=== PATIENT | male | born 1930 | race Caucasian/White ===

== ENCOUNTER 2021-02-01 14:43 | Inpatient (IN) | payer OTHER, MEDICARE ==
[~2021-02-01] VITALS: Ht 165.1 cm; Wt 76.2 kg
[2021-02-01] MEDS ORDERED: ONDANSETRON 4 MG/2 ML VIAL IV ONE (15:00)
[2021-02-01] MEDS ORDERED: MORPHINE SULFATE 2 MG/1 ML DISP.SYRIN IV ONE (15:00)
--- NOTE | 2021-02-01 15:00 | NUR ---
patient brought into the room with Dr Tate at bedside. brought in by personal ambulance and son at bedside for translation. patient is andorran speaking only. complaint is status post fall with hip pain. mobile xray done at home with probable fracture. will be admitted medsur bed.
[2021-02-01] MEDS ORDERED: ACET-73 PO (15:01)
[2021-02-01] MEDS ORDERED: CLON0.1T PO (15:01)
[2021-02-01] MEDS ORDERED: ASPI81TA31 PO (15:01)
[2021-02-01] MEDS ORDERED: LORA2TAB95 PO (15:01)
[2021-02-01] MEDS ORDERED: FURO-151 PO (15:01)
[2021-02-01] MEDS ORDERED: AMLO10TA59 PO (15:01)
[2021-02-01] MEDS ORDERED: LEVO50TA66 PO (15:01)
[2021-02-01] MEDS ORDERED: ZOLP5TAB8 PO (15:01)
[2021-02-01] MEDS ORDERED: GABA600T12 PO (15:01)
[2021-02-01 15:10] LABS: BASOPHILS % (AUTO) 0.4 % (0.0-2.0); EOSINOPHILS % (AUTO) 0.2 % (0.0-7.0); HEMATOCRIT 32.7 % (36.7-47.1); HEMOGLOBIN 10.8 g/dL (12.5-16.3); LYMPHOCYTES # (AUTO) 2.4 K/uL (20.0-40.0); LYMPHOCYTES % (AUTO) 20.6 % (20.5-51.5); MEAN CORPUSCULAR HEMOGLOBIN 27.7 uug (23.8-33.4); MEAN CORPUSCULAR HGB CONC 33 g/dL (32.5-36.3); MEAN CORPUSCULAR VOLUME 84.1 fL (73.0-96.2); MONOCYTES # (AUTO) 0.9 K/uL (2.0-10.0); MONOCYTES % (AUTO) 7.6 % (0.0-11.0); NEUTROPHILS # (AUTO) 8.4 K/uL (1.8-8.9); NEUTROPHILS % (AUTO) 71.2 % (38.5-71.5); PLATELET COUNT (AUTO) 245 K/uL (152-348); RED BLOOD CELL COUNT(AUTO) 3.89 MIL/uL (4.06-5.63); WHITE BLOOD COUNT (AUTO) 11.9 K/uL (3.6-10.2)
[2021-02-01] MEDS ORDERED: MORPHINE SULFATE 2 MG/1 ML DISP.SYRIN ONE (15:12)
[2021-02-01] MEDS ORDERED: ONDANSETRON 4 MG/2 ML VIAL ONE (15:12)
--- NOTE | 2021-02-01 15:13 | NUR ---
xray taken at this time and pain medication given prior to xray
[2021-02-01 15:16] LABS: CARBON DIOXIDE 25 mmol/L (21-32); CHLORIDE 106 mmol/L (98-107); CREATININE 1.6 mg/dL (0.6-1.3); GLUCOSE 120 mg/dL (74-106); POTASSIUM 4.8 mmol/L (3.5-5.1); UREA NITROGEN, BLOOD 21 mg/dL (7-18)
[2021-02-01 15:24] LABS: ALANINE AMINOTRANSFERASE 12 U/L (16-63); ALKALINE PHOSPHATASE 90 U/L (50-136); ASPARTATE AMINOTRANSFERASE 12 U/L (15-37); BILIRUBIN,DIRECT 0.1 mg/dL (0.0-0.2); BILIRUBIN,TOTAL 0.3 mg/dL (0.2-1.0); TOTAL PROTEIN, SERUM 6.8 g/dL (6.4-8.2)
--- NOTE | 2021-02-01 15:29 | NUR ---
left message with Dr. Pugh at this time
--- NOTE | 2021-02-01 15:30 | NUR ---
left message with Epic for pending admission
--- NOTE | 2021-02-01 15:34 | NUR ---
dr. cazares called back and spoke to dr. hathaway for consultation. And Ashu pending call back for admission. waiting for call back from [facility] for bed assignment.
--- NOTE | 2021-02-01 15:37 | NUR ---
called back with covid rapid is negative
[2021-02-01] MEDS ORDERED: IV NORMAL SALINE 500 ML IV ONE (16:15)
--- NOTE | 2021-02-01 16:19 | NUR ---
second call waiting for call back for assigned bed and nurse for medsurg admission
--- NOTE | 2021-02-01 16:21 | NUR ---
patient will be going to room 304. admitting nurse is Gwendolyn will call back for report.
[2021-02-01] MEDS ORDERED: MORPHINE SULFATE 2 MG/1 ML DISP.SYRIN IV PRN (16:30)
[2021-02-01] MEDS ORDERED: ONDANSETRON 4 MG/2 ML VIAL IV PRN ×2 (16:30→16:45)
[2021-02-01] MEDS ORDERED: Z GUARD REMEDY PASTE 57 GM TUBE TOP PRN (16:30)
--- NOTE | 2021-02-01 16:33 | NUR ---
Gilda RN receiving report at this time.
--- NOTE | 2021-02-01 16:35 | NUR ---
Received patient report from Vicki BEE in ER at this time.
[2021-02-01 17:08] VITALS: BP 103/52
--- NOTE | 2021-02-01 17:15 | NUR ---
received patient from ER via gurney, patient awake and alert, no pain or discomfort noted at this time. IV intact and patent. patient on room air with no signs of SOB noted at this time. son at bedside. call light within reach. will continue to monitor.
--- NOTE | 2021-02-01 18:47 | NUR ---
patient in room awake and alert, on room air saturation at 94%. vitals stable. no complains of any pain or discomfort at this time. IV intact and patent NS running at 100ml/hr. as ordered. call light kept within reach. son at bedside. will report to oncoming shift.
--- NOTE | 2021-02-01 19:00 | NUR ---
Received patient lying in bed. Nephew at bedside. AAOx4, Nepali speaking only. Denies any pain or SOB at this time. IV site on left hand intact and patent. IVF infusing. Needs assessed and attended to. Safety measure initiated and call waldrop within reached.
[2021-02-01 20:00] VITALS: BP 119/49
--- NOTE | 2021-02-01 20:15 | NUR ---
Patient dee dee Daley at bedside and discussed patient medication from home (eye drops) and other medications. TRES [place] made aware of patient medication from home and order to go ahead and start patient medication latanoprost, Xalatan, timolol, gabapentin and Ativan. All medication verified and will carry out.
[2021-02-01] MEDS: GABAPENTIN 300 MG CAPSULE PO SCH (20:44)
[2021-02-01] MEDS: LORAZEPAM 1 MG TABLET PO SCH (20:44)
[2021-02-01] MEDS ORDERED: LATANOPROST OPHT DROP 2.5 ML BOTTLE EACHEYE SCH (21:00)
[2021-02-01] MEDS: IV NS 1000 ML 1,000 ML IV PRN (22:24)
[2021-02-02 04:05] VITALS: BP 112/53
--- NOTE | 2021-02-02 06:13 | NUR ---
Slept well last night. Denies any pain or SOB. NPO status. IV site on left hand remains intact and patent. IVF infusing. Needs attended to and met. Safety measure maintained and call waldrop within reached.
[2021-02-02 06:53] LABS: BASOPHILS % (AUTO) 0.4 % (0.0-2.0); EOSINOPHILS # (AUTO) 0.1 K/uL (0.0-0.7); EOSINOPHILS % (AUTO) 1.5 % (0.0-7.0); HEMATOCRIT 29.4 % (36.7-47.1); HEMOGLOBIN 9.6 g/dL (12.5-16.3); LYMPHOCYTES # (AUTO) 2.9 K/uL (20.0-40.0); LYMPHOCYTES % (AUTO) 30.3 % (20.5-51.5); MEAN CORPUSCULAR HEMOGLOBIN 27.9 uug (23.8-33.4); MEAN CORPUSCULAR HGB CONC 33 g/dL (32.5-36.3); MEAN CORPUSCULAR VOLUME 85.3 fL (73.0-96.2); MONOCYTES # (AUTO) 0.9 K/uL (2.0-10.0); MONOCYTES % (AUTO) 9.3 % (0.0-11.0); NEUTROPHILS # (AUTO) 5.5 K/uL (1.8-8.9); NEUTROPHILS % (AUTO) 58.5 % (38.5-71.5); PLATELET COUNT (AUTO) 217 K/uL (152-348); RED BLOOD CELL COUNT(AUTO) 3.45 MIL/uL (4.06-5.63); WHITE BLOOD COUNT (AUTO) 9.5 K/uL (3.6-10.2)
[2021-02-02 07:11] LABS: BILIRUBIN,TOTAL 0.4 mg/dL (0.2-1.0); CREATININE 1.1 mg/dL (0.6-1.3); MAGNESIUM 2.4 mg/dL (1.8-2.4); PHOSPHOROUS 4.6 mg/dL (2.5-4.9); POTASSIUM 4.4 mmol/L (3.5-5.1); TOTAL PROTEIN, SERUM 6.3 g/dL (6.4-8.2)
--- NOTE | 2021-02-02 07:15 | NUR ---
report received, patient awake in bed, no complains of any pain or discomfort noted at this time. call light kept within reach will continue to monitor.
[2021-02-02] MEDS: PANTOPRAZOLE SODIUM 40 MG VIAL IV SCH (08:51)
[2021-02-02] MEDS: GABAPENTIN 300 MG CAPSULE PO SCH ×2 (08:52→17:03)
[2021-02-02] MEDS: BRIMONIDINE 0.2% OPHT DROP 10 ML BOTTLE EACHEYE SCH ×2 (08:52→20:11)
[2021-02-02] MEDS: TIMOLOL MALEATE 0.5% OPHT DROP 5 ML BOTTLE EACHEYE SCH ×2 (08:52→20:11)
[2021-02-02 11:48] VITALS: BP 110/55
[2021-02-02 15:50] VITALS: BP 104/55
[2021-02-02 16:22] LABS: *BILIRUBIN,URIN NEGATIVE (NEGATIVE); *CLARITY,URINE CLEAR (CLEAR); *COLOR,URINE YELLOW (YELLOW); *KETONES,URINE NEGATIVE (NEGATIVE); *UROBILINOGEN,URINE 0.2 E.U./dl (NORMAL); LEUKOCYTE ESTERASE ,URINE NEGATIVE (NEGATIVE); NITRITE, URINE NEGATIVE (NEGATIVE); PH,URINE 5.5 (5.0-8.0); UGLUCOSE NEGATIVE (NEGATIVE)
[2021-02-02 16:24] LABS: *BLOOD, URINE TRACE (NEGATIVE)
[2021-02-02 16:37] LABS: BACTERIA,URINE NONE SEEN /HPF (NONE SEEN); RBC,URINE 0-3 /HPF (0-3); SQUAMOUS EPITHELIAL CELL,UR NONE SEEN /HPF (NONE SEEN); WBC,URINE 0-3 /HPF (0-3)
--- NOTE | 2021-02-02 17:49 | NUR ---
pt son at bedside, Arturo, stated that "his dad was under general anesthesia two months ago for a procedure done to remove food that was stuck in his lower esophagus, also the pt had a cxr done two months ago and showed a small amount of fluid in the lungs." Pt son wants to pass this information along as part of surgical report for the surgeon/anesthesiologist/scrub RN.
--- NOTE | 2021-02-02 18:28 | NUR ---
patient in bed awake, IV on left hand patent and flushed. no complains of any pain or discomfort. safety precautions in place. call light kept within reach. son at bedside. will report to oncoming nurse.
--- NOTE | 2021-02-02 19:30 | NUR ---
AAOx4. Family at bedside. Denies any pain or SOB. O2 sat at 88% on RA. O2 at 2LPM via NC provided. O2 sat went up to 91%. IV site on left hand intact and patent. IVF infusing. Cooling measure provided for temp 100.4 orally. Needs assessed and attended to. Safety measure initiated and call waldrop within reached.
[2021-02-02 20:00] VITALS: BP 131/61
[2021-02-02] MEDS: ACETAMINOPHEN 325 MG TABLET PO PRN (20:11)
[2021-02-02] MEDS: LORAZEPAM 1 MG TABLET PO SCH (20:13)
[2021-02-02] MEDS: LATANOPROST OPHT DROP 2.5 ML BOTTLE EACHEYE SCH (20:56)
--- NOTE | 2021-02-02 21:24 | NUR ---
Informed Dr. Pugh that patient had a temp of 100.4 orally at the beginning of shift, Cooling measure provided as well as Tylenol 650mg. Latest Temp is still 100.0 orally. No new order given. will continue with cooling measure and continue to monitor.
[2021-02-03] VITALS (9 sets, daily range): BP systolic 102–131; BP diastolic 39–62
[2021-02-03] MEDS: IV NS 1000 ML 1,000 ML IV PRN (00:10)
[2021-02-03 05:40] LABS: BASOPHILS # (AUTO) 0.1 K/uL (0.0-8.0); BASOPHILS % (AUTO) 0.6 % (0.0-2.0); EOSINOPHILS # (AUTO) 0.1 K/uL (0.0-0.7); EOSINOPHILS % (AUTO) 1.5 % (0.0-7.0); HEMOGLOBIN 9.3 g/dL (12.5-16.3); LYMPHOCYTES # (AUTO) 2.6 K/uL (20.0-40.0); LYMPHOCYTES % (AUTO) 26.1 % (20.5-51.5); MEAN CORPUSCULAR HEMOGLOBIN 28.1 uug (23.8-33.4); MEAN CORPUSCULAR HGB CONC 33 g/dL (32.5-36.3); MEAN CORPUSCULAR VOLUME 84.1 fL (73.0-96.2); MONOCYTES % (AUTO) 10.3 % (0.0-11.0); NEUTROPHILS # (AUTO) 6.1 K/uL (1.8-8.9); NEUTROPHILS % (AUTO) 61.5 % (38.5-71.5); PLATELET COUNT (AUTO) 185 K/uL (152-348); RED BLOOD CELL COUNT(AUTO) 3.32 MIL/uL (4.06-5.63)
[2021-02-03 05:49] LABS: MAGNESIUM 2.2 mg/dL (1.8-2.4); POTASSIUM 4.1 mmol/L (3.5-5.1)
--- NOTE | 2021-02-03 06:20 | NUR ---
Patient slept well last night. O2 sat at 93% on RA. Afebrile. NPO status. Awaiting for surgery. IVF infusing. Needs attended to and met. Safety measure maintained.
--- NOTE | 2021-02-03 07:00 | NUR ---
Patient picked up by surgical team via hospital bed.
[2021-02-03] MEDS ORDERED: MIDAZOLAM HCL 2 MG/2 ML VIAL ONE (07:01)
[2021-02-03] MEDS ORDERED: FENTANYL CITRATE 250 MCG/5 ML AMPUL ONE (07:01)
[2021-02-03] MEDS ORDERED: POLYMYXIN B SULFATE 500,000 UNITS, BACITRACIN 50,000 UNITS, NORMAL SALINE 20 ML MC ONE (07:15)
[2021-02-03] MEDS ORDERED: VANCOMYCIN 1000 MG VIAL ONE (07:20)
[2021-02-03] MEDS ORDERED: BUPIVACAINE 0.25% 30 ML VIAL ONE (08:40)
[2021-02-03] MEDS ORDERED: CEFAZOLIN 1 G VIAL IM ONE (09:11)
[2021-02-03] MEDS ORDERED: SEVOFLURANE 250 ML BOTTLE IH ONE (09:11)
[2021-02-03] MEDS ORDERED: METOCLOPRAMIDE HCL 10 MG/2 ML VIAL IV ONE (09:11)
[2021-02-03] MEDS ORDERED: LIDOCAINE-MPF 2% 5 ML VIAL IJ ONE (09:11)
[2021-02-03] MEDS ORDERED: ONDANSETRON 4 MG/2 ML VIAL IV ONE (09:11)
[2021-02-03] MEDS ORDERED: PROPOFOL 200 MG/20 ML BOTTLE IV ONE (09:11)
--- NOTE | 2021-02-03 09:52 | NUR ---
WOUND CARE CONSULT: PT OFF UNIT AT THIS TIME IN O.R. RECOMMENDATIONS MADE FOR SKIN PROTECTION. DISCUSSED WITH NURSING STAFF. WILL SEE PT PT CONDITION PERMITS.
--- NOTE | 2021-02-03 10:33 | NUR ---
pt received from recovery room via bed in stable condition vs are stable call light with in reach son is at bed side
[2021-02-03] MEDS: TIMOLOL MALEATE 0.5% OPHT DROP 5 ML BOTTLE EACHEYE SCH ×2 (10:40→21:22)
[2021-02-03] MEDS: GABAPENTIN 300 MG CAPSULE PO SCH ×2 (10:40→16:13)
[2021-02-03] MEDS: BRIMONIDINE 0.2% OPHT DROP 10 ML BOTTLE EACHEYE SCH ×2 (10:40→21:22)
[2021-02-03] MEDS: PANTOPRAZOLE SODIUM 40 MG VIAL IV SCH (10:42)
[2021-02-03] MEDS ORDERED: IV D5 1/2 NS 1000 ML 1,000 ML IV PRN (11:30)
[2021-02-03] MEDS ORDERED: MORPHINE SULFATE 4 MG/1 ML DISP.SYRIN IV PRN ×2 (12:15→14:15)
[2021-02-03] MEDS: IV D5W-0.45% NS +20 KCL 1,000 ML IV PRN (13:47)
[2021-02-03] MEDS: HYDROCODONE/APAP 5-325MG TABLET PO PRN (13:50)
[2021-02-03] MEDS: CEFAZOLIN 1 G in IV DEXTROSE 5% 50 ML IV SCH ×2 (15:07→23:14)
--- NOTE | 2021-02-03 21:00 | NUR ---
Received pt in bed, with family at bedside. Pt is awake and verbally responsive, [place] speaking. Pt denies any pain or discomfort. On oxygen at 2LPM, non labored breathing, saturating at 96%. IVF infusing well. With SCD's on. Safety measures initiated, call light within reach, will continue to monitor.
[2021-02-03] MEDS: LATANOPROST OPHT DROP 2.5 ML BOTTLE EACHEYE SCH (21:21)
[2021-02-03] MEDS: LORAZEPAM 1 MG TABLET PO SCH (21:22)
[2021-02-03] MEDS: ACETAMINOPHEN 325 MG TABLET PO PRN (21:22)
[2021-02-03] MEDS: MAGNESIUM HYDROXIDE 30 ML LIQUID UDC PO PRN (21:22)
[2021-02-04] MEDS: HYDROCODONE/APAP 5-325MG TABLET PO PRN ×3 (01:30→20:39)
[2021-02-04 04:00] VITALS: BP 119/56
[2021-02-04] MEDS: IV D5W-0.45% NS +20 KCL 1,000 ML IV PRN ×2 (05:34→18:34)
[2021-02-04 05:48] LABS: BASOPHILS # (AUTO) 0.1 K/uL (0.0-8.0); BASOPHILS % (AUTO) 0.4 % (0.0-2.0); EOSINOPHILS # (AUTO) 0.1 K/uL (0.0-0.7); HEMATOCRIT 24.8 % (36.7-47.1); HEMOGLOBIN 8.2 g/dL (12.5-16.3); LYMPHOCYTES # (AUTO) 3.2 K/uL (20.0-40.0); MEAN CORPUSCULAR HEMOGLOBIN 28.1 uug (23.8-33.4); MEAN CORPUSCULAR HGB CONC 33 g/dL (32.5-36.3); MEAN CORPUSCULAR VOLUME 84.7 fL (73.0-96.2); MONOCYTES # (AUTO) 1.3 K/uL (2.0-10.0); MONOCYTES % (AUTO) 10.5 % (0.0-11.0); NEUTROPHILS # (AUTO) 7.7 K/uL (1.8-8.9); NEUTROPHILS % (AUTO) 62.1 % (38.5-71.5); PLATELET COUNT (AUTO) 196 K/uL (152-348); RED BLOOD CELL COUNT(AUTO) 2.93 MIL/uL (4.06-5.63); WHITE BLOOD COUNT (AUTO) 12.3 K/uL (3.6-10.2)
[2021-02-04 06:08] LABS: BILIRUBIN,TOTAL 0.4 mg/dL (0.2-1.0); CREATININE 1.1 mg/dL (0.6-1.3); MAGNESIUM 2.4 mg/dL (1.8-2.4); PHOSPHOROUS 3.4 mg/dL (2.5-4.9); POTASSIUM 4.5 mmol/L (3.5-5.1); TOTAL PROTEIN, SERUM 6.2 g/dL (6.4-8.2)
--- NOTE | 2021-02-04 06:34 | NUR ---
Slept intermittently through the night. tolerated medications well. IVF infusing on R forearm. Ice pack applied on affected side. Bed locked and in low position. side rails up. call light within reach. all needs attended and met.
[2021-02-04] MEDS: PANTOPRAZOLE SODIUM 40 MG TABLET.DR PO SCH (07:39)
[2021-02-04] MEDS: GABAPENTIN 300 MG CAPSULE PO SCH ×2 (08:02→16:01)
[2021-02-04] MEDS: BRIMONIDINE 0.2% OPHT DROP 10 ML BOTTLE EACHEYE SCH ×2 (08:02→20:37)
[2021-02-04] MEDS: TIMOLOL MALEATE 0.5% OPHT DROP 5 ML BOTTLE EACHEYE SCH ×2 (08:02→20:37)
[2021-02-04 11:27] VITALS: BP 114/52
[2021-02-04] MEDS: MAGNESIUM HYDROXIDE 30 ML LIQUID UDC PO PRN (12:44)
[2021-02-04 15:28] VITALS: BP 129/50
[2021-02-04] MEDS: ACETAMINOPHEN 325 MG TABLET PO PRN (17:11)
--- NOTE | 2021-02-04 19:30 | NUR ---
Received pt in bed, awake and verbally responsive. Pt denies any pain or discomfort. Non labored breathing, with oxygen at 2LPM via NC. intermittent pneumatic compression device on. IVF infusing well. Safety measures initiated, call light within reach, will continue to monitor.
[2021-02-04 20:00] VITALS: BP 103/53
[2021-02-04] MEDS: LATANOPROST OPHT DROP 2.5 ML BOTTLE EACHEYE SCH (20:37)
[2021-02-04] MEDS: LORAZEPAM 1 MG TABLET PO SCH (21:26)
[2021-02-05] VITALS (9 sets, daily range): BP systolic 98–127; BP diastolic 40–61
[2021-02-05 06:05] LABS: BASOPHILS # (AUTO) 0.1 K/uL (0.0-8.0); BASOPHILS % (AUTO) 0.6 % (0.0-2.0); EOSINOPHILS # (AUTO) 0.3 K/uL (0.0-0.7); EOSINOPHILS % (AUTO) 2.7 % (0.0-7.0); HEMATOCRIT 21.9 % (36.7-47.1); LYMPHOCYTES # (AUTO) 2.5 K/uL (20.0-40.0); MEAN CORPUSCULAR HEMOGLOBIN 28.2 uug (23.8-33.4); MEAN CORPUSCULAR HGB CONC 34 g/dL (32.5-36.3); MEAN CORPUSCULAR VOLUME 83.9 fL (73.0-96.2); MONOCYTES # (AUTO) 1.1 K/uL (2.0-10.0); MONOCYTES % (AUTO) 9.8 % (0.0-11.0); NEUTROPHILS # (AUTO) 7.4 K/uL (1.8-8.9); NEUTROPHILS % (AUTO) 64.9 % (38.5-71.5); PLATELET COUNT (AUTO) 196 K/uL (152-348); RED BLOOD CELL COUNT(AUTO) 2.61 MIL/uL (4.06-5.63); WHITE BLOOD COUNT (AUTO) 11.4 K/uL (3.6-10.2)
[2021-02-05] MEDS: PANTOPRAZOLE SODIUM 40 MG TABLET.DR PO SCH (06:07)
[2021-02-05 06:15] LABS: HEMOGLOBIN 7.4 g/dL (12.5-16.3)
[2021-02-05 06:25] LABS: CREATININE 1.1 mg/dL (0.6-1.3); MAGNESIUM 2.5 mg/dL (1.8-2.4)
--- NOTE | 2021-02-05 06:34 | NUR ---
Pain medication administered as ordered. Pt tolerated medications well. No signs of distress. Used incentive spirometer every hour when awake. Slept well. Dressing on L hip has moderate sanguineous drainage. Notified Dr. Pugh on pt's latest Hgb and drainage status. Will endorse to incoming nurse.
[2021-02-05] MEDS: IV D5W-0.45% NS +20 KCL 1,000 ML IV PRN (07:16)
--- NOTE | 2021-02-05 07:30 | NUR ---
Received patient in bed alert and oriented times 4. No sign of distress noted. Patient is mostly Congolese speaking. Family is at bedside. Surgical site intact, some drainage noted. Patient is on 2L NC. Safety precautions are in place. Will continue to monitor.
[2021-02-05] MEDS: ENSURE ENLIVE (VAN) 240 ML LIQUID PO SCH (08:47)
[2021-02-05] MEDS: GABAPENTIN 300 MG CAPSULE PO SCH ×2 (08:47→17:39)
[2021-02-05] MEDS: TIMOLOL MALEATE 0.5% OPHT DROP 5 ML BOTTLE EACHEYE SCH ×2 (08:48→20:46)
[2021-02-05] MEDS: BRIMONIDINE 0.2% OPHT DROP 10 ML BOTTLE EACHEYE SCH ×2 (08:49→20:46)
--- NOTE | 2021-02-05 10:00 | NUR ---
Call Dr Pugh's office to let him know of surgical drainage. Left message and awaiting callback. Will continue to monitor.
[2021-02-05] MEDS: ACETAMINOPHEN 325 MG TABLET PO PRN ×2 (15:13→23:46)
--- NOTE | 2021-02-05 16:30 | NUR ---
DRESSING CHANGED LEFT HIP. INCISIONS X3 CLEAN & DRY. NO REDNESS NOTED. BHARGAVI INTACT. SMALL AMOUNT OF SEROUS DRAINAGE NOTED ON TOP INCISION.
--- NOTE | 2021-02-05 18:47 | NUR ---
Patient is left resting in bed no sign of distress noted. Gave medication as ordered. Patient temp recheck was now 99.8. Blood consent signed and in chart Safety precautions are in place. Will endorse to the oncoming shift.
--- NOTE | 2021-02-05 19:30 | NUR ---
Received pt in bed, awake and verbally responsive, denies any pain or discomfort. On oxygen at 2LPM via NC. No signs of acute distress. IV access on R forearm intact and patent. Dressing on L hip intact, no signs of drainage. Bed locked and in low position. side rails up. Call light within reach. Will continue to monitor.
[2021-02-05] MEDS: LATANOPROST OPHT DROP 2.5 ML BOTTLE EACHEYE SCH (20:46)
[2021-02-05] MEDS: LORAZEPAM 1 MG TABLET PO SCH (21:00)
--- NOTE | 2021-02-05 22:28 | NUR ---
Blood transfusion consent signed by pt's son. IV access intact and patent. VS taken prior to blood transfusion. Verification checklist done with Anny BEE. Blood transfusion started. Will monitor pt closely for any blood transfusion reactions. .
[2021-02-06 00:17] VITALS: BP 117/55
--- NOTE | 2021-02-06 01:40 | NUR ---
1 PRBC infused and tolerated well. No s/s of blood transfusion reactions. Pt denies any SOB, chest pain, lightheadedness, dizziness or discomfort. Repositioned pt comfortably in bed. will continue to monitor.
[2021-02-06 04:00] VITALS: BP 125/56
[2021-02-06] MEDS: PANTOPRAZOLE SODIUM 40 MG TABLET.DR PO SCH (06:16)
--- NOTE | 2021-02-06 06:26 | NUR ---
Pt in bed, asleep but easily arousable, tolerated medications well. Denies any pain or discomfort. No s/s of acute distress. IV access intact and patent. No reaction from blood transfusion noted. L hip incision with barbara, no signs of drainage. Surrounding area is tender. Wound dressing done. Intermittent compression device on. Will endorse to incoming nurse.
[2021-02-06 06:38] LABS: BASOPHILS # (AUTO) 0.1 K/uL (0.0-8.0); BASOPHILS % (AUTO) 0.6 % (0.0-2.0); EOSINOPHILS # (AUTO) 0.4 K/uL (0.0-0.7); EOSINOPHILS % (AUTO) 3.2 % (0.0-7.0); HEMATOCRIT 26.3 % (36.7-47.1); HEMOGLOBIN 8.8 g/dL (12.5-16.3); LYMPHOCYTES # (AUTO) 2.8 K/uL (20.0-40.0); LYMPHOCYTES % (AUTO) 23.9 % (20.5-51.5); MEAN CORPUSCULAR HEMOGLOBIN 28.7 uug (23.8-33.4); MEAN CORPUSCULAR HGB CONC 34 g/dL (32.5-36.3); MEAN CORPUSCULAR VOLUME 85.6 fL (73.0-96.2); MONOCYTES # (AUTO) 1.1 K/uL (2.0-10.0); MONOCYTES % (AUTO) 9.4 % (0.0-11.0); NEUTROPHILS # (AUTO) 7.4 K/uL (1.8-8.9); NEUTROPHILS % (AUTO) 62.9 % (38.5-71.5); PLATELET COUNT (AUTO) 221 K/uL (152-348); RED BLOOD CELL COUNT(AUTO) 3.08 MIL/uL (4.06-5.63); WHITE BLOOD COUNT (AUTO) 11.7 K/uL (3.6-10.2)
[2021-02-06 06:48] LABS: POTASSIUM 4.5 mmol/L (3.5-5.1)
--- NOTE | 2021-02-06 06:55 | NUR ---
Endorsed to AM nurse to refer incision site tenderness to Dr. Pugh today.
[2021-02-06] MEDS: TIMOLOL MALEATE 0.5% OPHT DROP 5 ML BOTTLE EACHEYE SCH ×2 (08:01→20:36)
[2021-02-06] MEDS: GABAPENTIN 300 MG CAPSULE PO SCH ×2 (08:01→16:04)
[2021-02-06] MEDS: BRIMONIDINE 0.2% OPHT DROP 10 ML BOTTLE EACHEYE SCH ×2 (08:01→20:32)
[2021-02-06] MEDS: ENSURE ENLIVE (VAN) 240 ML LIQUID PO SCH (08:02)
[2021-02-06] MEDS ORDERED: MORPHINE SULFATE 2 MG/1 ML DISP.SYRIN IV PRN (11:30)
[2021-02-06 11:43] VITALS: BP 118/54
[2021-02-06 14:26] VITALS: BP 124/59
--- NOTE | 2021-02-06 19:30 | NUR ---
RECEIVED PT AWAKE, ALERT AND ORIENTEDX4. FAMILY AT BEDSIDE. PT IN NO ACUTE DISTRESS. IV INTACT. PT COMPLAINING OF PAIN. SAFETY AND COMFORT PROVIDED. WILL CONTINUE TO MONITOR.
[2021-02-06] MEDS: HYDROCODONE/APAP 5-325MG TABLET PO PRN (19:47)
[2021-02-06 20:00] VITALS: BP 138/64
--- NOTE | 2021-02-06 20:30 | NUR ---
AT 1947H PT WAS GIVEN NORCO PRN FOR 5/7 PAIN . PT TOLERATED IT WELL. AFTER 30 MINUTES PT STATED HIS PAIN GOT BETTER. SAFETY PROVIDED. WILL CONTINUE TO MONITOR.
[2021-02-06] MEDS: LATANOPROST OPHT DROP 2.5 ML BOTTLE EACHEYE SCH (20:47)
[2021-02-06] MEDS: LORAZEPAM 1 MG TABLET PO SCH (21:19)
[2021-02-07] MEDS: ACETAMINOPHEN 325 MG TABLET PO PRN (03:58)
[2021-02-07 04:00] VITALS: BP 135/63
[2021-02-07] MEDS: PANTOPRAZOLE SODIUM 40 MG TABLET.DR PO SCH (06:09)
--- NOTE | 2021-02-07 06:16 | NUR ---
PT SLEPT INTERMITTENTLY. PT IN NO ACUTE DISTRESS. PRESCRIBED MEDICATION GIVEN AND PT TOLERATED IT WELL. TYLENOL 650MG PRN GIVEN AT 0358H FOR PAIN. PT TOLERATED IT WELL. SAFETY AND COMFORT PROVIDED. ALL NEEDS ARE MET. VITAL SIGNS WITHIN NORMAL LIMIT. WILL ENDORSE TO INCOMING NURSE FOR CONTINUITY OF CARE.
[2021-02-07 06:24] LABS: BASOPHILS # (AUTO) 0.1 K/uL (0.0-8.0); BASOPHILS % (AUTO) 0.5 % (0.0-2.0); EOSINOPHILS # (AUTO) 0.3 K/uL (0.0-0.7); EOSINOPHILS % (AUTO) 2.2 % (0.0-7.0); HEMATOCRIT 28.5 % (36.7-47.1); HEMOGLOBIN 9.4 g/dL (12.5-16.3); LYMPHOCYTES % (AUTO) 24.7 % (20.5-51.5); MEAN CORPUSCULAR HEMOGLOBIN 28.5 uug (23.8-33.4); MEAN CORPUSCULAR HGB CONC 33 g/dL (32.5-36.3); MEAN CORPUSCULAR VOLUME 86.6 fL (73.0-96.2); MONOCYTES # (AUTO) 1.1 K/uL (2.0-10.0); MONOCYTES % (AUTO) 8.8 % (0.0-11.0); NEUTROPHILS # (AUTO) 7.8 K/uL (1.8-8.9); NEUTROPHILS % (AUTO) 63.8 % (38.5-71.5); PLATELET COUNT (AUTO) 281 K/uL (152-348); RED BLOOD CELL COUNT(AUTO) 3.29 MIL/uL (4.06-5.63); WHITE BLOOD COUNT (AUTO) 12.2 K/uL (3.6-10.2)
[2021-02-07 06:54] LABS: BILIRUBIN,TOTAL 0.8 mg/dL (0.2-1.0); MAGNESIUM 2.4 mg/dL (1.8-2.4); PHOSPHOROUS 4.2 mg/dL (2.5-4.9); POTASSIUM 4.7 mmol/L (3.5-5.1); TOTAL PROTEIN, SERUM 6.4 g/dL (6.4-8.2)
[2021-02-07] MEDS: GABAPENTIN 300 MG CAPSULE PO SCH ×2 (09:04→17:45)
[2021-02-07] MEDS: TIMOLOL MALEATE 0.5% OPHT DROP 5 ML BOTTLE EACHEYE SCH ×2 (09:05→20:49)
[2021-02-07] MEDS: ENSURE ENLIVE (VAN) 240 ML LIQUID PO SCH (09:05)
[2021-02-07] MEDS: BRIMONIDINE 0.2% OPHT DROP 10 ML BOTTLE EACHEYE SCH ×2 (09:05→20:49)
[2021-02-07 11:47] VITALS: BP 111/57
[2021-02-07 16:00] VITALS: BP 118/62
--- NOTE | 2021-02-07 18:50 | NUR ---
Patient is left resting in bed no sign of distress noted. Gave medication as ordered. Family at bedside. Safety precautions are in place. Will endorse to the oncoming shift.
[2021-02-07 20:37] VITALS: BP 103/55
[2021-02-07] MEDS: LORAZEPAM 1 MG TABLET PO SCH (20:48)
[2021-02-07] MEDS: LATANOPROST OPHT DROP 2.5 ML BOTTLE EACHEYE SCH (20:49)
[2021-02-07] MEDS: HYDROCODONE/APAP 5-325MG TABLET PO PRN (20:51)
[2021-02-08 05:26] VITALS: BP 125/67
[2021-02-08] MEDS: PANTOPRAZOLE SODIUM 40 MG TABLET.DR PO SCH (06:06)
[2021-02-08] MEDS: HYDROCODONE/APAP 5-325MG TABLET PO PRN (06:13)
--- NOTE | 2021-02-08 06:35 | NUR ---
Patient rested well in between care; no acute distress; c/o pain x2 and medicated both with [place]; dressing to left hip intact clean and dry.
[2021-02-08] MEDS: GABAPENTIN 300 MG CAPSULE PO SCH ×2 (08:00→16:01)
[2021-02-08] MEDS: BRIMONIDINE 0.2% OPHT DROP 10 ML BOTTLE EACHEYE SCH (08:00)
[2021-02-08] MEDS: TIMOLOL MALEATE 0.5% OPHT DROP 5 ML BOTTLE EACHEYE SCH (08:00)
[2021-02-08] MEDS: ENSURE ENLIVE (VAN) 240 ML LIQUID PO SCH (08:05)
[2021-02-08 12:00] VITALS: BP 117/61
--- NOTE | 2021-02-08 16:24 | NUR ---
dc orders received noted and carried out,dc instruction and education given to the patient and his son,patient verbalized understanding all the instruction,dc heplock per md orders,pt will follow up with dr Pugh in one week .dc pt via bed to aru in this hospital in stable condition
[2021-02-08] MEDS ORDERED: BRIMONIDINE 0.2% EACHEYE (17:42)
[2021-02-08] MEDS ORDERED: LATA2.5D15 EACHEYE (17:42)
[2021-02-08] MEDS ORDERED: TIMO5SOL11 EACHEYE (17:42)
[2021-02-08] MEDS ORDERED: TIMO5DRO18 EACHEYE (18:09)
== END 2021-02-08 16:28 | DRG 308 ==
LOC: ER 14:43 → MEDSURG3 16:40
PROVIDERS: ADMIT Hospitalist; ATTEND Nurse Practitioner Acute Care
PROC: 0QS706Z Reposition Left Upper Femur with Intramedullary Internal Fixation Device, Open Approach (ICD-10-PCS; 2021-02-03)
PROC: 30233N1 Transfusion of Nonautologous Red Blood Cells into Peripheral Vein, Percutaneous Approach (ICD-10-PCS; principal; 2021-02-05)
DX: S72.142A Displaced intertrochanteric fracture of left femur, initial encounter for closed fracture (principal); N17.0 Acute kidney failure with tubular necrosis; E44.0 Moderate protein-calorie malnutrition; E03.9 Hypothyroidism, unspecified; D64.9 Anemia, unspecified; E86.0 Dehydration; F41.9 Anxiety disorder, unspecified; G62.9 Polyneuropathy, unspecified; I50.9 Heart failure, unspecified; J44.9 Chronic obstructive pulmonary disease, unspecified; I12.9 Hypertensive chronic kidney disease with stage 1 through stage 4 chronic kidney disease, or unspecified chronic kidney disease; N18.9 Chronic kidney disease, unspecified; W06.XXXA Fall from bed, initial encounter; Y93.9 Activity, unspecified; Y92.099 Unspecified place in other non-institutional residence as the place of occurrence of the external cause; N13.9 Obstructive and reflux uropathy, unspecified; E88.09 Other disorders of plasma-protein metabolism, not elsewhere classified; Z68.28 Body mass index [BMI] 28.0-28.9, adult; Z20.822 Contact with and (suspected) exposure to COVID-19; Z79.82 Long term (current) use of aspirin
CPT/HCPCS: 36415; 71045; 73502; 73503; 83735; 84100; 85025; 85610; 85730; 86850; 86900; 86901; 86920; 93005; 93307; A4649; A4663; C1713; C9113; G0378; J0690; J2250; J2270; J2405; J2765; J3010; J3370; J3490; J7030; J7040; J7060; P9016-BL; P9021

== ENCOUNTER 2021-02-08 14:43 | Inpatient (IN) | payer OTHER, MEDICARE ==
[~2021-02-08] VITALS: Ht 165.1 cm; Wt 70.1 kg
[~2021-02-08 14:43] MED LIST: ACET-73 PO; AMLO10TA59 PO; ASPI81TA31 PO; GABA600T12 PO; LEVO50TA66 PO; ZOLP5TAB8 PO
[2021-02-08 16:51] VITALS: BP 125/60
[2021-02-08] MEDS ORDERED: Z GUARD REMEDY PASTE 57 GM TUBE TOP PRN (17:00)
--- NOTE | 2021-02-08 17:00 | NUR ---
89 year old male received from medical surgical unit to room 304 for sp im nailing left hip ,pt is axox4 .call light with in yo[place] orient the pt to room and surroundings ,vs are stable, made aware fir admission orders,pt refused to notified his pcp .
[2021-02-08] MEDS ORDERED: TIMO5SOL11 EACHEYE (17:42)
[2021-02-08] MEDS ORDERED: LATA2.5D15 EACHEYE (17:42)
[2021-02-08] MEDS ORDERED: BRIMONIDINE 0.2% EACHEYE (17:42)
[2021-02-08] MEDS ORDERED: ZOLPIDEM 5 MG TABLET PO PRN (18:00)
[2021-02-08] MEDS ORDERED: HOME MED MISCELLANEOUS XX SCH (18:00)
[2021-02-08] MEDS ORDERED: TIMO5DRO18 EACHEYE (18:09)
--- NOTE | 2021-02-08 19:30 | NUR ---
Received pt in bed, awake and verbally responsive, able to make needs known. No signs of respiratory distress, denies any pain or discomfort. L hip surgical incision with barbara, clean and shows no signs of infection, dressing intact. Safety measures initiated, call light within reach, will continue to monitor.
[2021-02-08 20:00] VITALS: BP 115/61
[2021-02-08] MEDS: BRIMONIDINE 0.2% OPHT DROP 10 ML BOTTLE EACHEYE SCH (20:37)
[2021-02-08] MEDS: TIMOLOL MALEATE 0.5% OPHT DROP 5 ML BOTTLE EACHEYE SCH (20:37)
[2021-02-08] MEDS ORDERED: LATANOPROST OPHT DROP 2.5 ML BOTTLE EACHEYE SCH (21:00)
[2021-02-08] MEDS ORDERED: TIMOLOL MALEATE XE 0.5% OPHT 5 ML BOTTLE EACHEYE SCH (21:00)
[2021-02-08] MEDS: ACETAMINOPHEN ES 500 MG TABLET PO PRN (21:10)
[2021-02-09 04:00] VITALS: BP 133/68
--- NOTE | 2021-02-09 06:19 | NUR ---
Pt slept through the night, no signs of acute distress. Pt tolerated medications well, no pain reported. Wound dressing done on L hip, incision clean and dry. Safety measures in place, call light within reach, all needs attended and met.
[2021-02-09 08:00] VITALS: BP 121/60
[2021-02-09] MEDS: ASPIRIN 81 MG TAB.CHEW PO SCH (08:09)
[2021-02-09] MEDS: BRIMONIDINE 0.2% OPHT DROP 10 ML BOTTLE EACHEYE SCH ×2 (08:09→20:08)
[2021-02-09] MEDS: GABAPENTIN 300 MG CAPSULE PO SCH ×2 (08:09→17:24)
[2021-02-09] MEDS: AMLODIPINE 10 MG TABLET PO SCH (08:13)
[2021-02-09] MEDS: TIMOLOL MALEATE 0.5% OPHT DROP 5 ML BOTTLE EACHEYE SCH ×2 (08:16→20:08)
[2021-02-09] MEDS: LEVOTHYROXINE SODIUM 50 MCG TABLET PO SCH (08:18)
[2021-02-09] MEDS ORDERED: LEVOTHYROXINE SODIUM 50 MCG TABLET PO SCH (09:00)
[2021-02-09 16:00] VITALS: BP 112/59
[2021-02-09] MEDS: ENSURE ENLIVE (VAN) 240 ML LIQUID PO SCH (17:25)
[2021-02-09 20:03] VITALS: BP 119/63
[2021-02-09] MEDS: LATANOPROST OPHT DROP 2.5 ML BOTTLE EACHEYE SCH (20:08)
[2021-02-10 04:03] VITALS: BP 115/63
[2021-02-10] MEDS: ACETAMINOPHEN ES 500 MG TABLET PO PRN (04:42)
--- NOTE | 2021-02-10 05:11 | NUR ---
Pt slept throughout the night. C/o mild pain in left leg that is alleviated with Tylenol. Salvadorean speaking but able to make needs known. Denies SOB or chest pain at this time. Bed is locked and in lowest position, call light within reach. No other issues or concerns at this time, will endorse to day shift.
[2021-02-10] MEDS: LEVOTHYROXINE SODIUM 50 MCG TABLET PO SCH (06:02)
[2021-02-10] MEDS: ENSURE ENLIVE (VAN) 240 ML LIQUID PO SCH ×2 (09:00→17:23)
[2021-02-10] MEDS: ASPIRIN 81 MG TAB.CHEW PO SCH (10:03)
[2021-02-10] MEDS: GABAPENTIN 300 MG CAPSULE PO SCH ×2 (10:04→16:29)
[2021-02-10] MEDS: TIMOLOL MALEATE 0.5% OPHT DROP 5 ML BOTTLE EACHEYE SCH ×2 (10:04→20:44)
[2021-02-10] MEDS: BRIMONIDINE 0.2% OPHT DROP 10 ML BOTTLE EACHEYE SCH ×2 (10:05→20:43)
[2021-02-10] MEDS: AMLODIPINE 10 MG TABLET PO SCH (10:06)
[2021-02-10 15:21] VITALS: BP 110/55
--- NOTE | 2021-02-10 18:58 | NUR ---
Patient alert and oriented x 3-4. On room air. Patient compliant with medications and care. Bed locked and in low position. call light within reach. Participated with Physical and Occupational Therapy. Patient denies pain/ discomfort. Comfort measures provided. Wound treatment done as ordered. Will endorse to incoming shift for continuity of care.
[2021-02-10 20:22] VITALS: BP 108/66
[2021-02-10] MEDS: LATANOPROST OPHT DROP 2.5 ML BOTTLE EACHEYE SCH (20:43)
[2021-02-11] MEDS: NITROGLYCERIN OINT 1 GM PACKET TP SCH ×5 (02:55→23:22)
[2021-02-11 04:50] VITALS: BP 110/42
--- NOTE | 2021-02-11 05:17 | NUR ---
Pt slept intermittently throughout the night. C/o of left sided chest pain around 0215H. Severo Chackocy notified with ordered for Nitro Paste to be applied to chest wall Q6H, stat EKG, and morning troponin draw. Pt placed on 2L for comfort. Currently, pt still has chest discomfort. Denies SOB. EKG came back NSR. Pt resting in bed, no acute distress noted. Safety and comfort provided. No other issues or concerns at this time, will endorse to day shift.
[2021-02-11] MEDS: ACETAMINOPHEN ES 500 MG TABLET PO PRN ×2 (06:14→20:21)
[2021-02-11] MEDS: PANTOPRAZOLE SODIUM 40 MG TABLET.DR PO SCH (06:15)
[2021-02-11] MEDS: LEVOTHYROXINE SODIUM 50 MCG TABLET PO SCH (06:15)
--- NOTE | 2021-02-11 06:40 | NUR ---
Nitro for 0600H not given because order is for every 6 hours and medication was last given at around 0245H. Will notify pharmacy and oncoming nurse.
[2021-02-11] MEDS: SUCRALFATE 1 G TABLET PO SCH ×4 (06:41→20:21)
[2021-02-11 08:00] VITALS: BP 110/53
[2021-02-11] MEDS: ASPIRIN 81 MG TAB.CHEW PO SCH (09:07)
[2021-02-11] MEDS: GABAPENTIN 300 MG CAPSULE PO SCH ×2 (09:09→16:49)
[2021-02-11] MEDS: AMLODIPINE 10 MG TABLET PO SCH (09:09)
[2021-02-11] MEDS: TIMOLOL MALEATE 0.5% OPHT DROP 5 ML BOTTLE EACHEYE SCH ×2 (09:10→20:21)
[2021-02-11] MEDS: ENSURE ENLIVE (VAN) 240 ML LIQUID PO SCH ×2 (09:11→16:50)
[2021-02-11] MEDS: BRIMONIDINE 0.2% OPHT DROP 10 ML BOTTLE EACHEYE SCH ×2 (09:11→20:21)
--- NOTE | 2021-02-11 15:42 | NUR ---
INDIVIDUALIZED PLAN OF CARE
[2021-02-11 16:31] VITALS: BP 146/58
--- NOTE | 2021-02-11 18:13 | NUR ---
Patient continue on nitro patch. tolerated well. no adverse reaction noted. no chest pain/discomfort noted. will continue monitor
--- NOTE | 2021-02-11 19:30 | NUR ---
RECEIVED PT AWAKE, ALERT AND ORIENTEDX4. PT IN NO ACUTE DISTRESS. SON AT BEDSIDE. SON REQUESTED TO PUT PT FOOD ON THE REFRIGERATOR AND GIVE TI HIS DAD AT 0830H GIACOMO. SAFETY AND COMFORT PROVIDED. WILL CONTINUE TO MONITOR.
[2021-02-11] MEDS: LATANOPROST OPHT DROP 2.5 ML BOTTLE EACHEYE SCH (20:21)
[2021-02-11 20:22] VITALS: BP 122/58
[2021-02-11] MEDS: ZOLPIDEM 5 MG TABLET PO PRN (22:10)
--- NOTE | 2021-02-11 22:22 | NUR ---
TYLENOL ES PRN GIVEN TO PT FOR PAIN. PT TOLERATED IT WELL. AMBIEN PRN GIVEN AT 2210H PER PT REQUEST. VITAL SIGNS STABLE.SAFETY AND COMFORT PROVIDED. WILL CONTINUE TO MONITOR.
[2021-02-12 04:35] VITALS: BP 114/61
[2021-02-12] MEDS: NITROGLYCERIN OINT 1 GM PACKET TP SCH ×4 (05:55→23:49)
[2021-02-12] MEDS: LEVOTHYROXINE SODIUM 50 MCG TABLET PO SCH (06:01)
[2021-02-12] MEDS: PANTOPRAZOLE SODIUM 40 MG TABLET.DR PO SCH (06:01)
[2021-02-12] MEDS: ACETAMINOPHEN ES 500 MG TABLET PO PRN ×2 (06:01→20:09)
--- NOTE | 2021-02-12 06:09 | NUR ---
PT SLEPT INTERMITTENTLY. PT IN NO ACUTE DISTRESS. PRESCRIBED MEDICATION GIVEN AND PT TOLERATED IT WELL. TYLENOL ES PRN GIVEN AT 0601H FOR PAIN. WOUND DRESSING CHANGED. SAFETY AND COMFORT PROVIDED. WILL ENDORSE TO INCOMING NURSE FOR CONTINUITY OF CARE.
[2021-02-12] MEDS: SUCRALFATE 1 G TABLET PO SCH ×4 (06:33→20:09)
--- NOTE | 2021-02-12 07:32 | NUR ---
Received awake and responsive watching tv in pleasant mood. No distress. No complaints. Safety maintained. Kept comfortable. Continue to monitor.
[2021-02-12 08:00] VITALS: BP 132/64
[2021-02-12] MEDS: GABAPENTIN 300 MG CAPSULE PO SCH ×2 (08:19→16:16)
[2021-02-12] MEDS: ASPIRIN 81 MG TAB.CHEW PO SCH (08:19)
[2021-02-12] MEDS: TIMOLOL MALEATE 0.5% OPHT DROP 5 ML BOTTLE EACHEYE SCH ×2 (08:19→20:09)
[2021-02-12] MEDS: BRIMONIDINE 0.2% OPHT DROP 10 ML BOTTLE EACHEYE SCH ×2 (08:19→20:15)
[2021-02-12] MEDS: ENSURE ENLIVE (VAN) 240 ML LIQUID PO SCH ×2 (08:20→17:21)
[2021-02-12] MEDS: AMLODIPINE 10 MG TABLET PO SCH (08:20)
--- NOTE | 2021-02-12 09:30 | NUR ---
Patient seen by rehab tolerated. No distress noted.
[2021-02-12 12:00] VITALS: BP 117/53
[2021-02-12 16:34] VITALS: BP 126/60
--- NOTE | 2021-02-12 19:07 | NUR ---
Patient alert and oriented, watching tv in pleasant mood. No acute distress on 2lpm via nc. No sob or chest pain. Due meds given and tolerated. No nausea or vomiting noted. Safety measures maintained. Needs attended. Endorsed for continuity of care.
--- NOTE | 2021-02-12 19:30 | NUR ---
RECEIVED PT AWAKE, ALERT AND ORIENTEDX4. FAMILY MEMBER AT BEDSIDE. PT IN NO ACUTE DISTRESS. PT ON 2L NASAL CANNULA. SAFETY AND COMFORT PROVIDED. WILL CONTINUE TO MONITOR.
[2021-02-12 20:03] VITALS: BP 125/58
--- NOTE | 2021-02-12 20:20 | NUR ---
A5T PT GIVEN TYLENOL ES FOR LEG PAIN. PT TOLERATED IT WELL. WILL CONTINUE TO MONITOR.
[2021-02-12] MEDS: LATANOPROST OPHT DROP 2.5 ML BOTTLE EACHEYE SCH (20:21)
[2021-02-12] MEDS: ZOLPIDEM 5 MG TABLET PO PRN (22:16)
[2021-02-12 23:42] VITALS: BP 123/64
[2021-02-13] MEDS: ACETAMINOPHEN ES 500 MG TABLET PO PRN (03:46)
[2021-02-13 04:41] VITALS: BP 120/61
[2021-02-13] MEDS: NITROGLYCERIN OINT 1 GM PACKET TP SCH ×3 (05:53→17:01)
--- NOTE | 2021-02-13 06:06 | NUR ---
PT SLEPT INTERMITTENTLY. PRESCRIBED MEDICATION GIVEN AND PT TOLERATED IT WELL. PT GIVEN TYLENOL ES 500 MG PRN AT 0346 FOR PAIN. PT TOLERATED IT WELL. PT GIVEN AMBIEN PRN AT 2216H. PT ON 1 LITER AND HIS OXYGEN SATURATION IS 94% . PT IN NO ACUTE RESPIRATORY DISTRESS. VITAL SIGNS WITHIN NORMAL LIMIT. SAFETY AND COMFORT PROVIDED. WILL ENDORSE TO INCOMING NURSE FOR CONTINUITY OF CARE.
[2021-02-13] MEDS: PANTOPRAZOLE SODIUM 40 MG TABLET.DR PO SCH (06:10)
[2021-02-13] MEDS: LEVOTHYROXINE SODIUM 50 MCG TABLET PO SCH (06:10)
[2021-02-13] MEDS: SUCRALFATE 1 G TABLET PO SCH ×4 (06:39→20:43)
--- NOTE | 2021-02-13 07:15 | NUR ---
received patient in bed awake, vitals stable, alert and oriented. no complains of any pain or discomfort. call light within reach. will continue to monitor.
[2021-02-13 08:00] VITALS: BP 124/65
[2021-02-13] MEDS: AMLODIPINE 10 MG TABLET PO SCH (08:09)
[2021-02-13] MEDS: GABAPENTIN 300 MG CAPSULE PO SCH ×2 (08:09→16:57)
[2021-02-13] MEDS: BRIMONIDINE 0.2% OPHT DROP 10 ML BOTTLE EACHEYE SCH ×2 (08:10→20:43)
[2021-02-13] MEDS: ASPIRIN 81 MG TAB.CHEW PO SCH (08:10)
[2021-02-13] MEDS: TIMOLOL MALEATE 0.5% OPHT DROP 5 ML BOTTLE EACHEYE SCH ×2 (08:10→20:43)
[2021-02-13] MEDS: ENSURE ENLIVE (VAN) 240 ML LIQUID PO SCH ×2 (08:10→16:56)
[2021-02-13 15:45] VITALS: BP 130/52
--- NOTE | 2021-02-13 18:03 | NUR ---
patient in bed awake, HOB elevated. on 1L nasal canula saturation at 96%. no SOB, pain or discomfort noted. safety precautions in place. call light and belongings within reach. will report to oncoming shift.
--- NOTE | 2021-02-13 19:20 | NUR ---
Received pt in bed, A&Ox4, awake and verbally responsive. Denies any pain or discomfort. On oxygen at 1L saturating 95%, no signs of respiratory distress. Dressing on L hip intact, no drainage noted. Safety measures initiated, call light and belongings within reach. will continue to monitor.
[2021-02-13 20:00] VITALS: BP 111/55
[2021-02-13] MEDS: LATANOPROST OPHT DROP 2.5 ML BOTTLE EACHEYE SCH (20:43)
[2021-02-13] MEDS: ZOLPIDEM 5 MG TABLET PO PRN (22:49)
[2021-02-14] MEDS: NITROGLYCERIN OINT 1 GM PACKET TP SCH ×4 (00:11→17:23)
[2021-02-14 04:00] VITALS: BP 126/59
[2021-02-14] MEDS: PANTOPRAZOLE SODIUM 40 MG TABLET.DR PO SCH (06:08)
[2021-02-14] MEDS: LEVOTHYROXINE SODIUM 50 MCG TABLET PO SCH (06:08)
--- NOTE | 2021-02-14 06:43 | NUR ---
Slept intermittently through the night, no s/s of acute distress. Pt tolerated medications well. Safety measures maintained at all times. all needs attended to and met.
[2021-02-14] MEDS: SUCRALFATE 1 G TABLET PO SCH ×4 (06:47→20:37)
--- NOTE | 2021-02-14 07:30 | NUR ---
RECEIVED PATIENT IN BED AWAKE ALERT AND ORIENTED VERBALLY RESPONSIVE DENIES PAIN OR DISCOMFORTS AT THIS TIME LEFT HIP S/P I.M NAILING WITH DRESSING INTACT NO DRAINAGE PATIENT IS ON ROOM AIR AT THIS TIME BUT WILL CHECK O2 SATS TO ENSURE THAT SATS ARE ADEQUATE CALL LIGHTS AND PERSONAL BELONGINGS ARE WITHIN EASY REACH WILL CONTINUE TO OBSERVE AND PROVIDE COMFORT
[2021-02-14 08:00] VITALS: BP 129/61
[2021-02-14] MEDS ORDERED: AMLODIPINE 5 MG TABLET PO SCH (09:00)
[2021-02-14] MEDS: ACETAMINOPHEN ES 500 MG TABLET PO PRN (09:12)
[2021-02-14] MEDS: ASPIRIN 81 MG TAB.CHEW PO SCH (09:12)
[2021-02-14] MEDS: GABAPENTIN 300 MG CAPSULE PO SCH ×2 (09:12→16:42)
[2021-02-14] MEDS: TIMOLOL MALEATE 0.5% OPHT DROP 5 ML BOTTLE EACHEYE SCH ×2 (09:13→20:37)
--- NOTE | 2021-02-14 09:20 | NUR ---
PATIENT IN BED AND HER SON IS AT THE BEDSIDE AND HE C/O HAVING MORE PAIN ON HIS LEFT HIP MORE THAN BEFORE REACHED OUT TO DR ARRIAGA WITH ORDER TO DO A STAT CHEST XRAY TODAY PATIENT AND SON NOTIFIED. Addendum: 02/14/21 at 1753 by BASIL MATUTE RN ERROR IN CHARTING ITS STAT HIP XRAY
[2021-02-14] MEDS: BRIMONIDINE 0.2% OPHT DROP 10 ML BOTTLE EACHEYE SCH ×2 (09:26→20:37)
[2021-02-14] MEDS: ENSURE ENLIVE (VAN) 240 ML LIQUID PO SCH ×2 (09:26→16:43)
[2021-02-14 15:53] VITALS: BP 115/61
--- NOTE | 2021-02-14 17:58 | NUR ---
AWAKE ALERT AND ORIENTED DENIES DISCOMFORTS AT THIS TIME PATIENT TOLERATED HIS PHYSICAL AND OCCUPATIONAL THERAPIES ORDERED REMAIN ON O2 AT 1 L/M WITH NO SHORTNESS OF BREATH AT THIS TIME CALL LIGHTS AND PERSONAL BELONGINGS ARE WITHIN EASY REACH WILL CONTINUE TO OBSERVE.
[2021-02-14 20:21] VITALS: BP 115/55
[2021-02-14] MEDS: LATANOPROST OPHT DROP 2.5 ML BOTTLE EACHEYE SCH (20:37)
--- NOTE | 2021-02-14 21:00 | NUR ---
PATIENT IN BED AWAKE ALERT AND ORIENTED WITH LANGUAGE BARRIER BUT STILL ABLE TO CONVEY SIMPLE NEEDS.REMAIN ON O2 AT 1L/M BY NASAL CANULA WITH NO SHORTNESS OF BREATH WITH ADEQUATE SATS AT THIS TIME DUE MEDICATIONS GIVEN AND TOLERATED WELL DENIES PAIN OR DISCOMFORTS AT THIS TIME LEFT HIP WITH DRESSING INTACT WITH NO DRAINAGE CALL LIGHTS AND PERSONAL BELONGINGS ARE WITHIN EASY REACH MADE COMFORTABLE WILL CONTINUE TO OBSERVE.
[2021-02-14] MEDS: ZOLPIDEM 5 MG TABLET PO PRN (23:19)
--- NOTE | 2021-02-14 23:19 | NUR ---
PATIENT MEDICATED WITH AMBIEN FOR SLEEP PER HIS REQUEST MADE COMFORTABLE WILL CONTINUE TO OBSERVE.
[2021-02-15] MEDS: ACETAMINOPHEN ES 500 MG TABLET PO PRN (00:42)
[2021-02-15] MEDS: NITROGLYCERIN OINT 1 GM PACKET TP SCH ×2 (00:42→06:09)
[2021-02-15 04:42] VITALS: BP 130/55
[2021-02-15] MEDS: PANTOPRAZOLE SODIUM 40 MG TABLET.DR PO SCH (06:08)
[2021-02-15] MEDS: LEVOTHYROXINE SODIUM 50 MCG TABLET PO SCH (06:08)
--- NOTE | 2021-02-15 08:00 | NUR ---
RECEIVED PATIENT IN BED AWAKE ALERT WITH LANGUAGE BARRIER BUT ABLE TO MAKE SIMPLE NEEDS KNOWN AT THIS TIME.HE IS ON O2 AT 1L/M BY NASAL CANULA WITH NO SHORTNESS OF BREATH AT THIS TIME LEFT HIP WITH DRESSING DRY AND INTACT WITH NO DRAINAGE ON SITE.CIRCULATION IS ADEQUATE CALL LIGHTS AND PERSONAL BELONGINGS ARE WITHIN EASY REACH WILL CONTINUE TO OBSERVE AND PROVIDE COMFORT.
[2021-02-15 08:18] VITALS: BP 118/54
[2021-02-15] MEDS: SUCRALFATE 1 G TABLET PO SCH ×4 (08:21→20:28)
[2021-02-15] MEDS: TIMOLOL MALEATE 0.5% OPHT DROP 5 ML BOTTLE EACHEYE SCH ×2 (08:22→20:27)
[2021-02-15] MEDS: GABAPENTIN 300 MG CAPSULE PO SCH ×2 (08:22→16:40)
[2021-02-15] MEDS: ASPIRIN 81 MG TAB.CHEW PO SCH (08:22)
[2021-02-15] MEDS: ENSURE ENLIVE (VAN) 240 ML LIQUID PO SCH ×2 (08:23→16:41)
[2021-02-15] MEDS: BRIMONIDINE 0.2% OPHT DROP 10 ML BOTTLE EACHEYE SCH ×2 (08:23→20:28)
[2021-02-15] MEDS: AMLODIPINE 2.5 MG TABLET PO SCH (08:27)
[2021-02-15] MEDS ORDERED: AMLODIPINE 5 MG TABLET PO SCH (09:00)
--- NOTE | 2021-02-15 13:35 | NUR ---
PATIENT IS UP ON THE W/CHAIR AND BEING TAKEN TO THE GYM FOR PHYSICAL THERAPEUTIC EXERCISES AND TOLERATING WELL DENIES PAIN OR DISCOMFORTS AT THIS TIME.
[2021-02-15 15:58] VITALS: BP 129/53
--- NOTE | 2021-02-15 18:03 | NUR ---
ALL DUE MEDICATIONS GIVEN HE TOLERATED PT/OT ORDERED WITH [facility] REMAIN ON O2 AT 1L/M BY NASAL CANULA WITH NO SHORTNESS OF BREATH AT THIS TIME WILL CONTINUE TO OBSERVE AND PROVIDE COMFORT.
[2021-02-15 20:00] VITALS: BP 139/62
[2021-02-15] MEDS: LATANOPROST OPHT DROP 2.5 ML BOTTLE EACHEYE SCH (20:27)
[2021-02-15] MEDS: ZOLPIDEM 5 MG TABLET PO PRN (21:59)
[2021-02-16] MEDS: ACETAMINOPHEN ES 500 MG TABLET PO PRN (01:50)
[2021-02-16 04:00] VITALS: BP 108/55
[2021-02-16] MEDS: LEVOTHYROXINE SODIUM 50 MCG TABLET PO SCH (06:35)
[2021-02-16] MEDS: PANTOPRAZOLE SODIUM 40 MG TABLET.DR PO SCH (06:35)
[2021-02-16] MEDS: SUCRALFATE 1 G TABLET PO SCH ×4 (06:35→20:06)
--- NOTE | 2021-02-16 07:00 | NUR ---
Patient slept intermittently, PRN Ambien administered per pt. request. On 1L NC O2 @ 98%, denies SOB and CP. No s/s of acute distress noted at this time. VSS. Left hip and leg dressings clean and intact. All patient needs were met and attended to. Safety measures in place and will endorse to oncoming nurse.
[2021-02-16 08:00] VITALS: BP 128/62
[2021-02-16] MEDS: TIMOLOL MALEATE 0.5% OPHT DROP 5 ML BOTTLE EACHEYE SCH ×2 (08:00→20:06)
[2021-02-16] MEDS: GABAPENTIN 300 MG CAPSULE PO SCH ×2 (08:00→16:03)
[2021-02-16] MEDS: ASPIRIN 81 MG TAB.CHEW PO SCH (08:00)
[2021-02-16] MEDS: BRIMONIDINE 0.2% OPHT DROP 10 ML BOTTLE EACHEYE SCH ×2 (08:00→20:06)
[2021-02-16] MEDS: AMLODIPINE 2.5 MG TABLET PO SCH (08:00)
[2021-02-16] MEDS: ENSURE ENLIVE (VAN) 240 ML LIQUID PO SCH ×2 (08:41→16:03)
[2021-02-16 11:53] VITALS: BP 108/60
[2021-02-16 13:29] LABS: BASOPHILS # (AUTO) 0.1 K/uL (0.0-8.0); BASOPHILS % (AUTO) 0.6 % (0.0-2.0); EOSINOPHILS # (AUTO) 0.2 K/uL (0.0-0.7); EOSINOPHILS % (AUTO) 1.8 % (0.0-7.0); HEMATOCRIT 31.9 % (36.7-47.1); LYMPHOCYTES # (AUTO) 3.2 K/uL (20.0-40.0); LYMPHOCYTES % (AUTO) 27.5 % (20.5-51.5); MEAN CORPUSCULAR HEMOGLOBIN 29.9 uug (23.8-33.4); MEAN CORPUSCULAR HGB CONC 35 g/dL (32.5-36.3); MEAN CORPUSCULAR VOLUME 86.3 fL (73.0-96.2); MONOCYTES # (AUTO) 0.6 K/uL (2.0-10.0); MONOCYTES % (AUTO) 5.4 % (0.0-11.0); NEUTROPHILS # (AUTO) 7.4 K/uL (1.8-8.9); NEUTROPHILS % (AUTO) 64.7 % (38.5-71.5); PLATELET COUNT (AUTO) 526 K/uL (152-348); RED BLOOD CELL COUNT(AUTO) 3.69 MIL/uL (4.06-5.63); WHITE BLOOD COUNT (AUTO) 11.5 K/uL (3.6-10.2)
[2021-02-16 16:00] VITALS: BP 126/54
[2021-02-16 20:05] VITALS: BP 130/57
[2021-02-16] MEDS: LATANOPROST OPHT DROP 2.5 ML BOTTLE EACHEYE SCH (20:06)
[2021-02-16] MEDS: ZOLPIDEM 5 MG TABLET PO PRN (22:46)
[2021-02-17 04:05] VITALS: BP 129/59
--- NOTE | 2021-02-17 05:35 | NUR ---
Pt slept throughout the night. Denies pain or SOB. On 1L NC, will take off and see how patient tolerates. Ambien given to patient per request to help sleep. Pt pleasant and cooperative. Safety and comfort provided, call light within reach. No other issues or concerns at this time, will endorse to day shift.
[2021-02-17] MEDS: LEVOTHYROXINE SODIUM 50 MCG TABLET PO SCH (06:20)
[2021-02-17] MEDS: PANTOPRAZOLE SODIUM 40 MG TABLET.DR PO SCH (06:20)
[2021-02-17] MEDS: SUCRALFATE 1 G TABLET PO SCH ×4 (06:44→20:18)
[2021-02-17 07:41] VITALS: BP 124/57
[2021-02-17] MEDS: TIMOLOL MALEATE 0.5% OPHT DROP 5 ML BOTTLE EACHEYE SCH ×2 (08:01→20:19)
[2021-02-17] MEDS: AMLODIPINE 2.5 MG TABLET PO SCH (08:01)
[2021-02-17] MEDS: ASPIRIN 81 MG TAB.CHEW PO SCH (08:01)
[2021-02-17] MEDS: BRIMONIDINE 0.2% OPHT DROP 10 ML BOTTLE EACHEYE SCH ×2 (08:01→20:18)
[2021-02-17] MEDS: GABAPENTIN 300 MG CAPSULE PO SCH ×2 (08:01→16:04)
[2021-02-17] MEDS: ENSURE ENLIVE (VAN) 240 ML LIQUID PO SCH ×2 (08:52→16:05)
[2021-02-17 15:18] VITALS: BP 141/63
[2021-02-17 20:05] VITALS: BP 137/64
[2021-02-17] MEDS: LATANOPROST OPHT DROP 2.5 ML BOTTLE EACHEYE SCH (20:21)
[2021-02-17 22:05] VITALS: BP 130/59
[2021-02-17] MEDS: ZOLPIDEM 5 MG TABLET PO PRN (22:38)
[2021-02-18] MEDS: PANTOPRAZOLE SODIUM 40 MG TABLET.DR PO SCH (06:12)
[2021-02-18] MEDS: LEVOTHYROXINE SODIUM 50 MCG TABLET PO SCH (06:12)
[2021-02-18] MEDS: SUCRALFATE 1 G TABLET PO SCH ×4 (06:30→20:47)
--- NOTE | 2021-02-18 06:41 | NUR ---
PATIENT AWAKE IN BED. SLEPT WELL. DENIES PAIN AT THIS TIME. BED ALARM ON. CALL LIGHT IN REACH. ALL NEEDS ATTENDED, WILL CONTINUE TO MONITOR AND ASSESS.
[2021-02-18] MEDS: GABAPENTIN 300 MG CAPSULE PO SCH ×2 (08:33→16:05)
[2021-02-18] MEDS: AMLODIPINE 2.5 MG TABLET PO SCH (08:34)
[2021-02-18] MEDS: ASPIRIN 81 MG TAB.CHEW PO SCH (08:34)
[2021-02-18] MEDS: TIMOLOL MALEATE 0.5% OPHT DROP 5 ML BOTTLE EACHEYE SCH ×2 (08:34→20:48)
[2021-02-18] MEDS: ENSURE ENLIVE (VAN) 240 ML LIQUID PO SCH ×2 (08:35→17:15)
[2021-02-18] MEDS: BRIMONIDINE 0.2% OPHT DROP 10 ML BOTTLE EACHEYE SCH ×2 (08:35→20:48)
[2021-02-18 08:38] VITALS: BP 135/57
--- NOTE | 2021-02-18 09:30 | NUR ---
Patient in bed alert and oriented x 3 Chilean speaking, son at bedside. No s/s of distress. Pleasant and cooeprative upon assessment. No s/s of distress. All due meds given as ordered . Call light placed within easy reach.
[2021-02-18 15:38] VITALS: BP 138/60
[2021-02-18 20:00] VITALS: BP 107/59
[2021-02-18] MEDS: LATANOPROST OPHT DROP 2.5 ML BOTTLE EACHEYE SCH (20:47)
--- NOTE | 2021-02-18 21:05 | NUR ---
Received pt resting in bed and watching tv. AAO x3-4, Trinidadian speaking, able to make needs known. Pt's family visited the pt. No acute distress noted. Denies pain/ discomfort. Due meds given as ordered. Safety measures maintained. Bed alarm on. Encouraged pt to use call light. Will continue to monitor.
[2021-02-18] MEDS: ZOLPIDEM 5 MG TABLET PO PRN (22:27)
[2021-02-19 04:03] VITALS: BP 96/60
[2021-02-19] MEDS: PANTOPRAZOLE SODIUM 40 MG TABLET.DR PO SCH (06:09)
[2021-02-19] MEDS: LEVOTHYROXINE SODIUM 50 MCG TABLET PO SCH (06:09)
[2021-02-19] MEDS: SUCRALFATE 1 G TABLET PO SCH ×4 (06:30→20:16)
[2021-02-19 07:30] VITALS: BP 124/58
[2021-02-19] MEDS: GABAPENTIN 300 MG CAPSULE PO SCH ×2 (08:43→16:08)
[2021-02-19] MEDS: ASPIRIN 81 MG TAB.CHEW PO SCH (08:43)
[2021-02-19] MEDS: AMLODIPINE 2.5 MG TABLET PO SCH (08:43)
[2021-02-19] MEDS: TIMOLOL MALEATE 0.5% OPHT DROP 5 ML BOTTLE EACHEYE SCH ×2 (08:44→20:17)
[2021-02-19] MEDS: BRIMONIDINE 0.2% OPHT DROP 10 ML BOTTLE EACHEYE SCH ×2 (08:44→20:17)
[2021-02-19] MEDS: ENSURE ENLIVE (VAN) 240 ML LIQUID PO SCH ×2 (08:44→17:44)
--- NOTE | 2021-02-19 09:30 | NUR ---
Patient in bed, alert and oriented, Russian speaking. Pleasant and cooperative upon assessment. Denies of any pain. All due meds given per MD order. On room oxygen saturating at 95%. Assisted to the bathroom with a walker, tolerated well. Bed alarm functioning well. Placed call light within reach Addendum: 02/19/21 at 1438 by PHILIP MOSES RN RN Patient in bed, alert and oriented, Russian speaking. Pleasant and cooperative upon assessment. Denies of any pain. All due meds given per MD order. On room air saturating at 95%. Assisted to the bathroom with a walker, tolerated well. Bed alarm functioning well. Placed call light within reach
[2021-02-19 15:17] VITALS: BP 106/58
--- NOTE | 2021-02-19 15:46 | NUR ---
Hunt on the left hip removed per Dr. Pugh and leave open to air. Minimal redness noted on the left hip surgical site with no discharges noted and patient denies of any pain. Will continue to monitor.
[2021-02-19 20:03] VITALS: BP 123/60
[2021-02-19] MEDS: LATANOPROST OPHT DROP 2.5 ML BOTTLE EACHEYE SCH (20:17)
--- NOTE | 2021-02-19 20:32 | NUR ---
Received pt resting in bed. AAO x4, Palestinian speaking, able to make needs known. No acute distress noted. Denies pain/ discomfort. Due meds given as ordered. Left hip surgical site RECEIVING BARN CUSTODIAN, no s/s of infection noted. Safety measures maintained. Call light and personal items within reach. Will continue to monitor.
[2021-02-19] MEDS: ZOLPIDEM 5 MG TABLET PO PRN (21:41)
[2021-02-20 04:03] VITALS: BP 120/58
[2021-02-20] MEDS: ACETAMINOPHEN ES 500 MG TABLET PO PRN (04:59)
[2021-02-20] MEDS: PANTOPRAZOLE SODIUM 40 MG TABLET.DR PO SCH (06:02)
[2021-02-20] MEDS: LEVOTHYROXINE SODIUM 50 MCG TABLET PO SCH (06:02)
[2021-02-20] MEDS: SUCRALFATE 1 G TABLET PO SCH ×4 (06:30→20:27)
[2021-02-20 08:09] VITALS: BP 146/66
[2021-02-20] MEDS: ASPIRIN 81 MG TAB.CHEW PO SCH (09:25)
[2021-02-20] MEDS: GABAPENTIN 300 MG CAPSULE PO SCH ×2 (09:25→17:15)
[2021-02-20] MEDS: BRIMONIDINE 0.2% OPHT DROP 10 ML BOTTLE EACHEYE SCH ×2 (09:26→20:27)
[2021-02-20] MEDS: TIMOLOL MALEATE 0.5% OPHT DROP 5 ML BOTTLE EACHEYE SCH ×2 (09:26→20:27)
[2021-02-20] MEDS: AMLODIPINE 2.5 MG TABLET PO SCH (09:26)
[2021-02-20] MEDS: ENSURE ENLIVE (VAN) 240 ML LIQUID PO SCH ×2 (09:27→17:16)
--- NOTE | 2021-02-20 12:42 | NUR ---
DR ARRIAGA HERE TO SEE PATIENT AND PATIENT C/O PAIN IN LEFT HIP STATED TYLENOL ORDERED IS NOT HELPING HIM ENOUGH SO MD ORDERED PERCOCET FOR HIM AND NOTED.
--- NOTE | 2021-02-20 13:07 | NUR ---
MEDICATED WITH PERCOCET ORDERED AT THIS TIME.WILL CONTINUE TO OBSERVE.
[2021-02-20] MEDS: OXYCODONE/APAP 5-325 MG TABLET PO PRN (13:08)
[2021-02-20 16:00] VITALS: BP 99/58
--- NOTE | 2021-02-20 18:00 | NUR ---
PATIENT IS RESTING DENIES PAIN OR DISCOMFORTS TOLERATED THERAPIES ORDERED NOT IN DISTRESS AT THIS TIME
[2021-02-20 20:00] VITALS: BP 114/55
[2021-02-20] MEDS: LATANOPROST OPHT DROP 2.5 ML BOTTLE EACHEYE SCH (20:27)
[2021-02-20] MEDS: ZOLPIDEM 5 MG TABLET PO PRN (22:03)
[2021-02-21 04:00] VITALS: BP 111/52
[2021-02-21] MEDS: PANTOPRAZOLE SODIUM 40 MG TABLET.DR PO SCH (06:12)
[2021-02-21] MEDS: LEVOTHYROXINE SODIUM 50 MCG TABLET PO SCH (06:12)
[2021-02-21] MEDS: SUCRALFATE 1 G TABLET PO SCH ×4 (06:13→20:37)
--- NOTE | 2021-02-21 06:32 | NUR ---
Shift End Report: Vs stable. Slept good. All needs attended. No complaint presented all night. No significant event reported. Continue current rehab plan of care.
[2021-02-21 06:42] LABS: CREATININE 0.9 mg/dL (0.6-1.3); POTASSIUM 3.8 mmol/L (3.5-5.1)
--- NOTE | 2021-02-21 07:28 | NUR ---
RECEIVED PATIENT IN BED AWAKE ALERT AND ORIENTED REMAINS WITH LANGUAGE BARRIER BUT ABLE TO MAKE SIMPLE NEEDS KNOWN ON ROOM AIR WITH NO SHPORTNESS OF BREATH AT THIS TIME CALL LIGHTS AND PERSONAL BELONGINGS ARE WITHIN EASY REACH MADE COMFORTABLE WILL CONTINUE TO OBSERVE LEFT HIP INCISION REMAINS OPEN TO AIR WITH NO S/S OF INFECTION AT THIS TIME.
[2021-02-21 07:31] VITALS: BP 136/63
[2021-02-21] MEDS: GABAPENTIN 300 MG CAPSULE PO SCH ×2 (08:38→17:25)
[2021-02-21] MEDS: ASPIRIN 81 MG TAB.CHEW PO SCH (08:38)
[2021-02-21] MEDS: AMLODIPINE 2.5 MG TABLET PO SCH (08:40)
[2021-02-21] MEDS: OXYCODONE/APAP 5-325 MG TABLET PO PRN (08:40)
--- NOTE | 2021-02-21 08:40 | NUR ---
PATIENT C/O INCISIONAL PAIN LEFT HIP MEDICATED WITH PERCOCET ORDERED COLD COMPRESS APPLIED WILL CONTINUE TO OBSERVE.
[2021-02-21] MEDS: TIMOLOL MALEATE 0.5% OPHT DROP 5 ML BOTTLE EACHEYE SCH ×2 (08:41→20:38)
[2021-02-21] MEDS: ENSURE ENLIVE (VAN) 240 ML LIQUID PO SCH ×2 (08:41→17:25)
[2021-02-21] MEDS: BRIMONIDINE 0.2% OPHT DROP 10 ML BOTTLE EACHEYE SCH ×2 (08:41→20:37)
--- NOTE | 2021-02-21 11:00 | NUR ---
UP AMBULATORY WITH THE FRONT WHEEL WALKER WITH THE PHYSICAL THERAPIST TO THE GYM IN [facility] NO C/O PAIN AT THIS TIME WILL CONTINUE TO OBSERVE.3
[2021-02-21 16:00] VITALS: BP 127/51
--- NOTE | 2021-02-21 18:08 | NUR ---
RESTING WELL WITH NO C/O PAIN AT THIS TIME TOLERATED ALL HIS SCHEDULED THERAPIES ON ROOM AIR WITH NJO SHORTNESS OF BREATH AT THIS TIME.
[2021-02-21 20:05] VITALS: BP 120/66
[2021-02-21] MEDS: LATANOPROST OPHT DROP 2.5 ML BOTTLE EACHEYE SCH (20:38)
[2021-02-21] MEDS: ZOLPIDEM 5 MG TABLET PO PRN (21:48)
[2021-02-22 04:05] VITALS: BP 122/58
[2021-02-22] MEDS: PANTOPRAZOLE SODIUM 40 MG TABLET.DR PO SCH (06:38)
[2021-02-22] MEDS: LEVOTHYROXINE SODIUM 50 MCG TABLET PO SCH (06:38)
--- NOTE | 2021-02-22 06:41 | NUR ---
ambulated to the bathroom with no assist with walker. voided freely. back to bed.tolerated well. medications due given
--- NOTE | 2021-02-22 07:30 | NUR ---
received changed of shift report. pt in bed resting, Yi speaking, a/ox4, on room air, no signs of distress, no reports of pain, call light within reach, urinal at bedside in reaching distance. safety precautions in place, will continue with plan of care.
[2021-02-22 07:31] VITALS: BP 142/62
[2021-02-22] MEDS: GABAPENTIN 300 MG CAPSULE PO SCH ×2 (08:22→17:14)
[2021-02-22] MEDS: AMLODIPINE 2.5 MG TABLET PO SCH (08:22)
[2021-02-22] MEDS: SUCRALFATE 1 G TABLET PO SCH ×4 (08:22→20:24)
[2021-02-22] MEDS: BRIMONIDINE 0.2% OPHT DROP 10 ML BOTTLE EACHEYE SCH ×2 (08:23→20:25)
[2021-02-22] MEDS: ASPIRIN 81 MG TAB.CHEW PO SCH (08:23)
[2021-02-22] MEDS: ENSURE ENLIVE (VAN) 240 ML LIQUID PO SCH ×3 (08:24→17:14)
[2021-02-22] MEDS: TIMOLOL MALEATE 0.5% OPHT DROP 5 ML BOTTLE EACHEYE SCH ×2 (08:24→20:25)
[2021-02-22] MEDS: ACETAMINOPHEN ES 500 MG TABLET PO PRN (12:54)
[2021-02-22 16:00] VITALS: BP 126/62
[2021-02-22 20:00] VITALS: BP 118/60
[2021-02-22 20:05] VITALS: BP 118/60
[2021-02-22] MEDS: LATANOPROST OPHT DROP 2.5 ML BOTTLE EACHEYE SCH (20:25)
[2021-02-22] MEDS: ZOLPIDEM 5 MG TABLET PO PRN (22:17)
[2021-02-23] MEDS: OXYCODONE/APAP 5-325 MG TABLET PO PRN (03:21)
[2021-02-23 04:05] VITALS: BP 113/52
--- NOTE | 2021-02-23 05:30 | NUR ---
Shift End Report: Slept well. Medicated once for complaint of pain with relief. No further complaint presented. All needs attended and met. No significant event reported all night. Continue current rehab plan of care.
[2021-02-23] MEDS: PANTOPRAZOLE SODIUM 40 MG TABLET.DR PO SCH (06:04)
[2021-02-23] MEDS: LEVOTHYROXINE SODIUM 50 MCG TABLET PO SCH (06:04)
[2021-02-23] MEDS: SUCRALFATE 1 G TABLET PO SCH ×2 (06:04→12:19)
--- NOTE | 2021-02-23 07:30 | NUR ---
received change of shift report. pt is Panamanian speaking, a/ox4, on room air, saturating at 95%, no reports of pain. walker at bedside, will continue with plan of care.
[2021-02-23 08:00] VITALS: BP 136/59
[2021-02-23] MEDS: TIMOLOL MALEATE 0.5% OPHT DROP 5 ML BOTTLE EACHEYE SCH (08:38)
[2021-02-23] MEDS: BRIMONIDINE 0.2% OPHT DROP 10 ML BOTTLE EACHEYE SCH (08:38)
[2021-02-23] MEDS: GABAPENTIN 300 MG CAPSULE PO SCH (08:38)
[2021-02-23] MEDS: ASPIRIN 81 MG TAB.CHEW PO SCH (08:38)
[2021-02-23] MEDS: ENSURE ENLIVE (VAN) 240 ML LIQUID PO SCH ×2 (08:40→12:20)
[2021-02-23] MEDS: AMLODIPINE 2.5 MG TABLET PO SCH (08:47)
[2021-02-23] MEDS: ACETAMINOPHEN ES 500 MG TABLET PO PRN (09:16)
[2021-02-23 12:00] VITALS: BP 133/62
--- NOTE | 2021-02-23 15:05 | NUR ---
pt discharged home with son at bedside. pt left with all belongings, paperwork, and prescriptions. pt on room air, no complaints of pain, ambulatory with assist, all medications given as ordered. pt cooperative, vitals WNL, pt left via private car with son. Home health set up with family, family given exit care instructions and follow up instructions for upcoming appointments. son verbalized understanding and given pt packet of information.
== END 2021-02-23 15:05 | disposition home health service (06) | DRG 862 ==
PROVIDERS: ADMIT Physical Medicine & Rehabilitation Pain Medicine; ATTEND Physical Medicine & Rehabilitation Pain Medicine
DX: S72.142D Displaced intertrochanteric fracture of left femur, subsequent encounter for closed fracture with routine healing (principal); N17.0 Acute kidney failure with tubular necrosis; I50.9 Heart failure, unspecified; E44.0 Moderate protein-calorie malnutrition; I11.0 Hypertensive heart disease with heart failure; J44.9 Chronic obstructive pulmonary disease, unspecified; E03.9 Hypothyroidism, unspecified; W06.XXXD Fall from bed, subsequent encounter; F41.9 Anxiety disorder, unspecified; H40.9 Unspecified glaucoma; Z68.28 Body mass index [BMI] 28.0-28.9, adult; D64.9 Anemia, unspecified; E86.0 Dehydration; M19.90 Unspecified osteoarthritis, unspecified site; T50.2X5A Adverse effect of carbonic-anhydrase inhibitors, benzothiadiazides and other diuretics, initial encounter; Y92.009 Unspecified place in unspecified non-institutional (private) residence as the place of occurrence of the external cause; R91.8 Other nonspecific abnormal finding of lung field; Z79.899 Other long term (current) drug therapy
CPT/HCPCS: 36415; 70030-TC; 71045; 73501; 85025; 93005; A9150

== ENCOUNTER 2021-06-04 14:16 | Emergency (ER) | payer MEDICARE, OTHER ==
[~2021-06-04] VITALS: Ht 167.6 cm; Wt 74.4 kg
[~2021-06-04 14:16] MED LIST changes: +BRIMONIDINE 0.2% EACHEYE; +LATA2.5D15 EACHEYE; +TIMO5DRO18 EACHEYE
[2021-06-04] MEDS ORDERED: GADOTERATE MEGLUMINE 10 MMOL/20 ML VIAL IV ONE (14:18)
--- NOTE | 2021-06-04 14:22 | NUR ---
at bedside for assessment
--- NOTE | 2021-06-04 14:30 | NUR ---
900ml of urine noted in [place] bag on upon insertion, patient states abdomen pain decreased after bladder emptying
[2021-06-04 14:57] LABS: MEAN CORPUSCULAR HEMOGLOBIN 27.8 uug (23.8-33.4); MEAN CORPUSCULAR VOLUME 82.6 fL (73.0-96.2); PLATELET COUNT (AUTO) 329 K/uL (152-348)
[2021-06-04 15:02] LABS: *BILIRUBIN,URIN NEGATIVE (NEGATIVE); *CLARITY,URINE CLEAR (CLEAR); *COLOR,URINE YELLOW (YELLOW); *KETONES,URINE NEGATIVE (NEGATIVE); *UROBILINOGEN,URINE 0.2 E.U./dl (NORMAL); LEUKOCYTE ESTERASE ,URINE NEGATIVE (NEGATIVE); NITRITE, URINE NEGATIVE (NEGATIVE); UGLUCOSE NEGATIVE (NEGATIVE)
[2021-06-04 15:04] LABS: *BLOOD, URINE NEGATIVE (NEGATIVE)
[2021-06-04 15:10] LABS: POTASSIUM 3.7 mmol/L (3.5-5.1)
[2021-06-04 15:16] LABS: BILIRUBIN,TOTAL 0.4 mg/dL (0.2-1.0); TOTAL PROTEIN, SERUM 8.1 g/dL (6.4-8.2)
--- NOTE | 2021-06-04 15:43 | NUR ---
PT'S SON TO BRING CURRENT LIST OF MEDS TODAY.
[2021-06-04] MEDS ORDERED: SWABABLE VALVE TRANSFER SET EA MC ONE (16:26)
[2021-06-04] MEDS ORDERED: IV NORMAL SALINE 250 ML IV ONE (16:26)
[2021-06-04] MEDS ORDERED: IOHEXOL 350 100 ML INFUS..BTL ONE (16:26)
[2021-06-04] MEDS ORDERED: ERGOCALCIFEROL PO (17:07)
[2021-06-04] MEDS ORDERED: CLON0.1T PO (17:07)
[2021-06-04] MEDS ORDERED: LIPA1CAP15 PO (17:07)
[2021-06-04] MEDS ORDERED: DICY20TA11 PO (17:07)
[2021-06-04] MEDS ORDERED: DEXL60CA3 PO (17:07)
[2021-06-04] MEDS ORDERED: NITR0.4T SL (17:07)
[2021-06-04] MEDS ORDERED: OXYC30TA86 PO (17:07)
[2021-06-04] MEDS ORDERED: NEOM10DR11 OT (17:07)
[2021-06-04] MEDS ORDERED: LIDOCAINE PATCH TP (17:07)
[2021-06-04] MEDS ORDERED: FURO40TA5 PO (17:07)
[2021-06-04] MEDS ORDERED: LISI30TA4 PO (17:07)
[2021-06-04] MEDS ORDERED: ROSU5TAB PO (17:07)
--- NOTE | 2021-06-04 17:20 | NUR ---
Radiology called for update of MRI to be arranged at [facility], awaiting returned call
--- NOTE | 2021-06-04 17:30 | NUR ---
Report recieved from day shift ROHIT Watson. Per Shirley Ellington from radiology at [facility] will wait for arrival of pt. to do MRI. ETA of ambulance pickup is 2029. Pt. is resting in bed, pts. sons are at the bedside. Pt. is hungry, per pt is npo until after MRI.
--- NOTE | 2021-06-04 17:41 | NUR ---
TEXTED DR. BENDER FOR MRI APPROVAL.
--- NOTE | 2021-06-04 19:17 | NUR ---
Ambulance transport arranged for patient at this time to have MRI of spine, [facility] pick[facility] time arranged for 8:30 pm
--- NOTE | 2021-06-04 21:02 | NUR ---
[facility] go to [facility] for mri. Spoke with Rakel from radiology at [facility] and she confirmed she will be there to do the mri for the pt.
--- NOTE | 2021-06-05 | NUR ---
Pt returned from [facility]. Copy of MRI CD present.
--- NOTE | 2021-06-05 01:00 | NUR ---
Pts son is at the bedside. Pending MRI report to determine where pt. will be admitted. Have educated pts. son multiple times that we are waiting on MRI report to be read from radiologist before admission can be determined. Pts. son concerned that we are not rotating pt. position, per md we are not changing pt position at this time due to possible spinal cord injury. Provided pt snacks, warm blanket NSS. NAD. Will continue to monitor.
--- NOTE | 2021-06-05 01:53 | NUR ---
Spoke w/ Severo at [facility]. Faxed face sheet. Pt accepted to [facility] pending bed and transport.
[2021-06-05] MEDS ORDERED: ACETAMINOPHEN ES 500 MG TABLET ONE (03:17)
[2021-06-05] MEDS ORDERED: ACETAMINOPHEN ES 500 MG TABLET PO STA (03:25)
--- NOTE | 2021-06-05 04:34 | NUR ---
Gave report to ROHIT Blackburn at [facility]. Pt to be picked up by [facility] at about 0440. Pt to go to rm [id number], bed 1 at [facility].
--- NOTE | 2021-06-05 04:45 | NUR ---
Pt resting in bed. I asked pt if he needed anything, he said no. NAD. Will continue to monitor.
--- NOTE | 2021-06-05 05:19 | NUR ---
Pt picked up by ambulance to go to [facility]. Pts. son is aware.
== END 2021-06-05 06:39 | disposition short-term general hospital (02) ==
LOC: ER 14:17
DX: R33.9 Retention of urine, unspecified (principal); R07.9 Chest pain, unspecified; G95.29 Other cord compression; R10.11 Right upper quadrant pain; M48.54XA Collapsed vertebra, not elsewhere classified, thoracic region, initial encounter for fracture; C79.51 Secondary malignant neoplasm of bone; J44.9 Chronic obstructive pulmonary disease, unspecified; E03.9 Hypothyroidism, unspecified; R26.2 Difficulty in walking, not elsewhere classified; D68.9 Coagulation defect, unspecified; Z20.822 Contact with and (suspected) exposure to COVID-19
CPT/HCPCS: 36415; 71045; 71275; 72158; 75635; 76700; 80053; 81003; 82962; 83880; 84484; 85025; 85379; 86850; 86900; 86901; 87426; 93005; 99285; A9575; Q9967; 70030-TC; A4663; A9150; J7050